=== PATIENT | female | born 1960 | race Caucasian/White ===

== ENCOUNTER 2016-05-25 10:57 | Inpatient (IN) | payer MEDICAID, OTHER ==
[~2016-05-25] VITALS: Ht 165.1 cm; Wt 74.8 kg
[2016-05-25] MEDS ORDERED: ASPI-650 PO (11:45)
[2016-05-25] MEDS ORDERED: LISI-170 PO (11:45)
[2016-05-25] MEDS ORDERED: CHLO25TA PO (11:45)
[2016-05-25] MEDS ORDERED: OXYB10TA PO (11:45)
[2016-05-25] MEDS ORDERED: SODIUM CHLORIDE FLUSH 10ML SYR IVF ONE (12:00)
[2016-05-25] MEDS ORDERED: SODIUM CHLORIDE 0.9% 1,000ML IVBOLUS ONE (12:00)
[2016-05-25 12:20] LABS: HEMOGLOBIN 13.7 g/dL (11.7-16.4)
[2016-05-25 12:33] LABS: BLOOD UREA NITROGEN 16 mg/dL (7-18)
[2016-05-25 12:43] LABS: IS PT STATUS REG ER OR PRE ER? YES
[2016-05-25] MEDS ORDERED: OMNIPAQUE 350 MG/ML, 100ML BOTTLE ONE (13:49)
[2016-05-25] MEDS ORDERED: ONDANSETRON 2MG/ML, 2ML IVP PRN (15:00)
[2016-05-25] MEDS ORDERED: POLYETHYLENE GLYCOL 17 GM PACKET PO PRN (15:00)
[2016-05-25] MEDS ORDERED: HYDROcodone/APAP 5/325 TABLET PO PRN (15:00)
[2016-05-25] MEDS ORDERED: ENOXAPARIN 40 MG/0.4 ML SQ SCH (15:00)
[2016-05-25] MEDS ORDERED: ONDANSETRON ODT 4 MG PO PRN (15:00)
[2016-05-25] MEDS ORDERED: LABETALOL 5MG/ML, 20ML IV PRN (15:00)
[2016-05-25] MEDS ORDERED: NS + 20MEQ KCL 1,000 ML IV ONE (15:58)
[2016-05-25] MEDS: NS + 20MEQ KCL 1,000 ML IV SCH (16:51)
[2016-05-25 19:50] VITALS: BP 130/83
[2016-05-25 20:17] VITALS: BP 130/83
[2016-05-25] MEDS: FAMOTIDINE 20 MG/2 ML IV SCH (20:31)
[2016-05-26 01:32] VITALS: BP 111/71
[2016-05-26] MEDS: NS + 20MEQ KCL 1,000 ML IV SCH (02:31)
[2016-05-26 06:01] LABS: HEMOGLOBIN 12.5 g/dL (11.7-16.4)
[2016-05-26 06:39] LABS: ASPARTATE AMINO TRANSFERASE 13 U/L (15-37); BLOOD UREA NITROGEN 15 mg/dL (7-18)
[2016-05-26 07:04] VITALS: BP 118/75
[2016-05-26 08:35] LABS: IS PT STATUS REG ER OR PRE ER? NO
[2016-05-26] MEDS ORDERED: CHLORTHALIDONE 25 MG TABLET PO SCH (09:00)
[2016-05-26] MEDS ORDERED: SENNA/DOCUSATE TABLET PO SCH (09:00)
[2016-05-26] MEDS: FAMOTIDINE 20 MG/2 ML IV SCH (11:17)
[2016-05-26 11:18] VITALS: BP 109/69
[2016-05-26] MEDS ORDERED: ASPI-515 PO (13:01)
[2016-05-26 13:40] VITALS: BP 122/76
== END 2016-05-26 16:24 | disposition home or self-care (01) | DRG 92 ==
LOC: ED 11:53 → EDIP 14:08 → 5SO 18:34 → DCLOUNGE 05-26 15:31
PROVIDERS: ADMIT Hospitalist; ATTEND Hospitalist
DX: G47.419 Narcolepsy without cataplexy (principal); E44.1 Mild protein-calorie malnutrition; R55 Syncope and collapse; R07.89 Other chest pain; R00.1 Bradycardia, unspecified; I37.1 Nonrheumatic pulmonary valve insufficiency; G47.33 Obstructive sleep apnea (adult) (pediatric); I10 Essential (primary) hypertension; Z68.27 Body mass index [BMI] 27.0-27.9, adult; Z79.82 Long term (current) use of aspirin; Z87.891 Personal history of nicotine dependence
CPT/HCPCS: 36415; 70450; 70496; 70498; 71010; 80048; 80053; 80061; 82040; 83735; 83880; 84439; 84443; 84484; 85025; 85610; 93005; 93017; 93306; 96360; J1650; J3480; Q9967; J7030; S0028

== ENCOUNTER → 2016-07-28 | Outpatient (CLI) | payer OTHER ==
[~2016-07-28] MED LIST: ASPI-515 PO; ASPI-650 PO; CHLO25TA PO; LISI-170 PO; OXYB10TA PO
== END | disposition home or self-care (01) ==
LOC: CFH 10:03
PROVIDERS: ATTEND Family Medicine
DX: Z12.31 Encounter for screening mammogram for malignant neoplasm of breast (principal)
CPT/HCPCS: G0202

== ENCOUNTER → 2019-09-27 | Outpatient (CLI) | payer OTHER ==
[~2019-09-27] MED LIST changes: -OXYB10TA PO; +OXYB10TA26 PO
== END | disposition home or self-care (01) ==
LOC: CFH 07:49
PROVIDERS: ATTEND Internal Medicine Cardiovascular Disease
DX: I08.8 Other rheumatic multiple valve diseases (principal)
CPT/HCPCS: 93306

== ENCOUNTER 2020-02-24 09:21 | Emergency (ER) | payer OTHER ==
[~2020-02-24] VITALS: Ht 162.6 cm; Wt 67.7 kg
[2020-02-24] MEDS ORDERED: MAALOX/HYOSCYAMINE/LIDOCAINE 45 ML BTL PO ONE (10:00)
--- NOTE | 2020-02-24 10:24 | NUR ---
PT COMES IN C/O SHARP CHEST PAIN X4 MONTHS, VOMITING X1 DAY. STATES SHE SAW HER PCP RECENTLY WHO PRESCRIBED CLONIDINE. PT STATES THAT "HELPS SOMETIMES AND MAKES THE PAIN GO AWAY" "MY BOYFRIEND THINKS IM GOING TO HAVE A HEART ATTACK". PT. AMBULATED TO BATHROOM FOR UA. UA COMPLETE. US AT BEDSIDE FOR ABD US
--- NOTE | 2020-02-24 10:27 | NUR ---
ULTRASOUND AT BEDSIDE
[2020-02-24] MEDS ORDERED: MAALOX/HYOSCYAMINE/LIDOCAINE 45 ML BTL ONE (10:39)
[2020-02-24 10:56] LABS: MICROSCOPIC AUTO
[2020-02-24 11:01] LABS: BASOPHILS % (AUTO) 1 % (0-1); EOSINOPHILS % (AUTO) 1 % (1-7); LYMPHOCYTES % (AUTO) 11 % (22-44); MEAN CORPUSCULAR HEMOGLOBIN 29.6 pg (27.0-34.8); MEAN PLATELET VOLUME 7.5 fL (7.4-10.4); MONOCYTES % (AUTO) 7 % (2-9); NEUTROPHILS % (AUTO) 80 % (42-75); PLATELET COUNT 282 x10^3/uL (130-400); RED BLOOD COUNT 4.73 x10^6/uL (3.82-5.3); RED CELL DISTRIBUTION WIDTH 13.4 % (9.6-15.2)
[2020-02-24 11:04] LABS: ALANINE AMINOTRANSFERASE 17 U/L (12-78); ALBUMIN 3.9 g/dL (3.4-5.0); ANION GAP 4 mmol/L (5-15); CALCIUM 9.3 mg/dL (8.5-10.1); CHLORIDE 108 mmol/L (98-107); CREATININE 0.82 mg/dL (0.55-1.02)
[2020-02-24 11:08] LABS: ALKALINE PHOSPHATASE 94 U/L (45-117); BILIRUBIN,TOTAL 0.4 mg/dL (0.2-1.0); TROPONIN I < 0.015 ng/mL (0.000-0.045)
--- NOTE | 2020-02-24 11:12 | NUR ---
TASK RN: PATIENT RESTING IN [facility], CONNECTED TO NURSING SURGICAL SERVICES DIRECTOR, NADN, VSS, CALL LIGHT WITHIN REACH.
[2020-02-24 11:18] LABS: MD NO
--- NOTE | 2020-02-24 11:46 | NUR ---
MD AT BEDSIDE DISCUSSING TEST RESULTS AND PLAN OF CARE
[2020-02-24 12:01] VITALS: BP 163/88
== END 2020-02-24 12:05 | disposition home or self-care (01) ==
LOC: ED 10:41
DX: K29.00 Acute gastritis without bleeding (principal); R07.89 Other chest pain; R10.9 Unspecified abdominal pain; I10 Essential (primary) hypertension
CPT/HCPCS: 36415; 71045; 76700; 80053; 81001; 83690; 84484; 85025; 93005; 99285

== ENCOUNTER 2020-03-13 13:38 | Emergency (ER) | payer OTHER ==
[~2020-03-13] VITALS: Ht 165.1 cm; Wt 69.3 kg
--- NOTE | 2020-03-13 13:58 | NUR ---
PT AMBULATED TO RESTROOM WITH STEADY GAIT.
[2020-03-13] MEDS ORDERED: ONDANSETRON 2MG/ML, 2ML IVPush ONE (14:30)
[2020-03-13] MEDS ORDERED: SODIUM CHLORIDE FLUSH 10ML SYR IVF ONE (14:30)
[2020-03-13] MEDS ORDERED: SODIUM CHLORIDE 0.9%, 500ML IVBOLUS ONE (14:30)
[2020-03-13] MEDS ORDERED: ONDANSETRON 2MG/ML, 2ML ONE (14:33)
--- NOTE | 2020-03-13 14:38 | NUR ---
PT C/O EPIGASTRIC/CP STARTING LAST NIGHT. TOOK CLONIDINE AND ASPRIN W/O RELIEF. PT VOMITTED UPON ARRIVAL TO ROOM. PIV PLACED, LABS DRAWN AND SENT TO LAB WITH LAB STICKERS. IVF RUNNING. PT CONNECTED TO MONITORING. CALL LIGHT IN REACH. WARM BLANKET PROVIDED.
[2020-03-13 14:50] LABS: BASOPHILS % (AUTO) 1 % (0-1); EOSINOPHILS % (AUTO) 1 % (1-7); LYMPHOCYTES % (AUTO) 11 % (22-44); MEAN CORPUSCULAR HEMOGLOBIN 29.1 pg (27.0-34.8); MEAN CORPUSCULAR HGB CONC 33.1 g/dL (32.4-35.8); MEAN PLATELET VOLUME 7.3 fL (7.4-10.4); MONOCYTES % (AUTO) 6 % (2-9); NEUTROPHILS % (AUTO) 81 % (42-75); PLATELET COUNT 305 x10^3/uL (130-400); RED BLOOD COUNT 4.63 x10^6/uL (3.82-5.3); RED CELL DISTRIBUTION WIDTH 13.1 % (9.6-15.2)
[2020-03-13 14:53] LABS: ALANINE AMINOTRANSFERASE 25 U/L (12-78); ALBUMIN 3.8 g/dL (3.4-5.0); ANION GAP 4 mmol/L (5-15); CALCIUM 9.1 mg/dL (8.5-10.1); CHLORIDE 107 mmol/L (98-107); CREATININE 0.84 mg/dL (0.55-1.02)
[2020-03-13 14:54] LABS: MD NO
[2020-03-13 14:57] LABS: ALKALINE PHOSPHATASE 109 U/L (45-117); BILIRUBIN,TOTAL 0.4 mg/dL (0.2-1.0); TOTAL PROTEIN 8.3 g/dL (6.4-8.2); TROPONIN I < 0.015 ng/mL (0.000-0.045)
[2020-03-13] MEDS ORDERED: KETOROLAC 30 MG/1 ML ONE (15:28)
[2020-03-13] MEDS ORDERED: KETOROLAC 30 MG/1 ML IVPush ONE (15:30)
--- NOTE | 2020-03-13 15:31 | NUR ---
[employer] PER MAY. AWAITING CT.
[2020-03-13] MEDS ORDERED: OMNIPAQUE 350 MG/ML, 100ML BOTTLE ONE (15:52)
--- NOTE | 2020-03-13 15:58 | NUR ---
ALL RESULTS ARE BACK AT THIS TIME. CHART UP FOR RECHECK.
--- NOTE | 2020-03-13 16:13 | NUR ---
TO CONSULT WITH GI.
[2020-03-13 17:30] VITALS: BP 170/85
== END 2020-03-13 17:35 | disposition home or self-care (01) ==
LOC: ED 14:09
DX: K26.3 Acute duodenal ulcer without hemorrhage or perforation (principal); R07.9 Chest pain, unspecified; R11.2 Nausea with vomiting, unspecified; I10 Essential (primary) hypertension; Z87.891 Personal history of nicotine dependence
CPT/HCPCS: 36415; 74177; 80053; 83690; 84484; 85025; 93005; 96361; 96374; 96375; 99285; J1885; J2405; J7040; Q9967